=== PATIENT | female | born 1950 | race Caucasian/White ===

== ENCOUNTER → 2016-11-06 | Outpatient (CLI) | payer MEDICARE ==
[~2016-11-06] MED LIST: COREG6.25 MG PO; COUMADIN5 MG PO; LISINOPRIL10 MG PO; LOVENOX120 MG/0.8 SQ; PRILOSEC20 MG PO
== END | disposition home or self-care (01) ==
LOC: RAD.S 09:53
DX: Z12.31 Encounter for screening mammogram for malignant neoplasm of breast (principal); R92.1 Mammographic calcification found on diagnostic imaging of breast; N63 Unspecified lump in breast